=== PATIENT | female | born 1955 | race Caucasian/White ===

== ENCOUNTER → 2019-12-18 | Outpatient (CLI) | payer BC ==
[~2019-12-18] MED LIST: ACETAMINOPHEN1 EACH PO; APAP500 PO; ASA81BEC PO; BENICAR HCT 401 EAC1 PO; BYSTOLIC 5 MG5 M1 PO; CALCIUM CIT 201 EACH PO; CHILDREN'S ASPI81 M1 PO; COZAAR 25 MG TA25 M2 PO; HUMULINR100; JARDIANCE10 MG PO; LIPITOR 20 MG T20 M1 PO; LOPRESSOR25 PO; NOVOLIN N100 UNIT/3 SUBQ; OSTEO BI-FLEX1 EAC1 PO; PACERONE 200 M200 M1 PO; PROTONIX 20 MG20 M1 PO; PROTONIX40 M2 PO; UNICOMPLEX M TA1 TA1 PO; VASCEPA1 GM PO
== END ==
LOC: SJCVCIMAG 11:12
PROVIDERS: ATTEND Internal Medicine Cardiovascular Disease
DX: R06.00 Dyspnea, unspecified (principal); R53.83 Other fatigue; I25.810 Atherosclerosis of coronary artery bypass graft(s) without angina pectoris; Z95.1 Presence of aortocoronary bypass graft